=== PATIENT | male | born 1945 | race Caucasian/White ===

== ENCOUNTER 2020-08-25 01:38 | Inpatient (IN) ==
[2020-08-25] MEDS ORDERED: Perflutren Lipid Microsphere 1.3 ML in 0.9 % Sodium Chloride 8.7 ML IVP PRN (04:40)
[2020-08-25] MEDS ORDERED: Naloxone 0.4 MG/ML INJ IVP PRN (04:43)
[2020-08-25] MEDS ORDERED: Melatonin 3 MG TABLET PO PRN (04:43)
[2020-08-25] MEDS ORDERED: Acetaminophen 325 MG TABLET PO PRN (04:43)
[2020-08-25] MEDS ORDERED: Ondansetron 4 MG/2 ML VIAL IVP PRN (04:43)
[2020-08-25] MEDS ORDERED: *HR* Promethazine 25 MG/ML VIAL IM PRN (04:43)
[2020-08-25] MEDS ORDERED: *HR* Metoprolol 5 MG/5 ML VIAL IVP PRN (05:11)
[2020-08-25] MEDS: 0.9 % Sodium Chloride 1,000 ML IVC SCH ×2 (05:52→19:10)
[2020-08-25 06:01] LABS: Basophils # 0.1 K/mcL (0.0-0.2); Basophils % 0.6 %; Eosinophils # 0.1 K/mcL (0.0-0.6); Hematocrit 44.9 % (37.5-50.1); Hemoglobin 15.4 g/dL (12.9-16.9); Immature Granulocytes % 1.1 % (0-4); Lymphocytes # 0.9 K/mcL (0.6-4.6); Lymphocytes % 6.9 %; Mean Corpuscular HGB Conc 34.3 g/dL (31.6-35.5); Mean Corpuscular Hemoglobin 29.6 pg (28.0-33.3); Mean Corpuscular Volume 86.2 fL (83.0-100.0); Mean Platelet Volume 9.4 fL (9.4-12.4); Monocytes % 7.9 %; Neutrophils # 10.3 K/mcL (1.6-8.9); Platelet Count 252 K/mcL (140-400); Red Blood Count 5.21 M/mcL (4.19-5.50); Red Cell Distribution Width 13.4 % (11.5-14.5); Segmented Neutrophils % 82.5 %; White Blood Count 12.5 K/mcL (4.3-11.1)
[2020-08-25 06:08] LABS: Estimated Average Glucose 117 mg/dl; Hemoglobin A1C 5.7 %
[2020-08-25 06:17] LABS: Alanine Aminotransferase 33 Units/L (7-52); Albumin 3.7 g/dL (3.5-5.7); Albumin/Globulin Ratio 1.2 (1.1-2.2); Alkaline Phosphatase 86 Units/L (34-104); Aspartate Amino Transferase 66 Units/L (13-39); BUN/Creatinine Ratio 16 (6-26); Blood Urea Nitrogen 22 mg/dL (8-23); Calcium 8.8 mg/dL (8.6-10.3); Carbon Dioxide 21 mEq/L (23-29); Chloride 102 mEq/L (98-107); Globulin 3.2 g/dL (2.4-3.5); Glucose 77 mg/dL (70-105); Osmolality,Calculated 272 (280-300); Sodium 130 mEq/L (136-145); Total Protein 6.9 g/dL (6.4-8.9); eGFR For African Americans > 60 (> 60); eGFR For Non-African Americans 52 (> 60)
[2020-08-25 06:19] LABS: Chol/HDL Ratio 2.8 (0-4.9)
[2020-08-25 06:23] LABS: Sodium, Urine 26.3 mEq/L
[2020-08-25] MEDS ORDERED: *HR* Heparin 5,000 UNIT/ML VIAL IVP PRN (06:35)
[2020-08-25] MEDS ORDERED: *HR* Heparin 5,000 UNIT/ML VIAL IVP ONE (06:35)
[2020-08-25] MEDS: Heparin 25,000UNIT/250ML 1/2NS 25,000 UNIT/250 ML IV.SOLN IVC SCH (07:15)
[2020-08-25 07:22] LABS: Hematocrit 45.6 % (37.5-50.1); Hemoglobin 15.6 g/dL (12.9-16.9); Mean Corpuscular HGB Conc 34.2 g/dL (31.6-35.5); Mean Corpuscular Hemoglobin 29.4 pg (28.0-33.3); Mean Platelet Volume 9.3 fL (9.4-12.4); Platelet Count 243 K/mcL (140-400); Red Cell Distribution Width 13.5 % (11.5-14.5); White Blood Count 12.3 K/mcL (4.3-11.1)
[2020-08-25 07:31] LABS: Heparin anti-factor XA UFH 0.22 IU/mL (0.30-0.70); INR 1.3; Prothrombin Time 15.4 Seconds (9.4-12.1)
[2020-08-25] MEDS ORDERED: Aspirin Enteric Coated 81 MG Tablet PO SCH (09:00)
[2020-08-25] MEDS: Finasteride 5 MG TABLET PO SCH (13:40)
[2020-08-25] MEDS: *HR* Heparin 5,000 UNIT/ML VIAL IVP PRN (16:11)
[2020-08-26 03:20] LABS: Basophils # 0.1 K/mcL (0.0-0.2); Eosinophils # 0.2 K/mcL (0.0-0.6); Eosinophils % 1.8 %; Hematocrit 43.2 % (37.5-50.1); Hemoglobin 14.4 g/dL (12.9-16.9); Immature Granulocytes % 0.7 % (0-4); Lymphocytes # 1.1 K/mcL (0.6-4.6); Lymphocytes % 11.2 %; Mean Corpuscular HGB Conc 33.3 g/dL (31.6-35.5); Mean Corpuscular Volume 86.9 fL (83.0-100.0); Mean Platelet Volume 9.6 fL (9.4-12.4); Monocytes # 0.9 K/mcL (0.0-1.3); Neutrophils # 7.2 K/mcL (1.6-8.9); Platelet Count 244 K/mcL (140-400); Red Blood Count 4.97 M/mcL (4.19-5.50); Red Cell Distribution Width 13.3 % (11.5-14.5); Segmented Neutrophils % 76.3 %; White Blood Count 9.5 K/mcL (4.3-11.1)
[2020-08-26 03:22] LABS: INR 1.3; Prothrombin Time 14.5 Seconds (9.4-12.1)
[2020-08-26 03:23] LABS: Heparin anti-factor XA UFH 0.24 IU/mL (0.30-0.70)
[2020-08-26 03:37] LABS: Alanine Aminotransferase 28 Units/L (7-52); Albumin 3.4 g/dL (3.5-5.7); Albumin/Globulin Ratio 1.2 (1.1-2.2); Alkaline Phosphatase 79 Units/L (34-104); Aspartate Amino Transferase 37 Units/L (13-39); BUN/Creatinine Ratio 20 (6-26); Bilirubin,Total 0.7 mg/dL (0.3-1.0); Blood Urea Nitrogen 27 mg/dL (8-23); Calcium 8.6 mg/dL (8.6-10.3); Carbon Dioxide 21 mEq/L (23-29); Chloride 105 mEq/L (98-107); Globulin 2.8 g/dL (2.4-3.5); Glucose 190 mg/dL (70-105); Osmolality,Calculated 284 (280-300); Phosphorous 2.7 mg/dL (2.7-4.5); Potassium 4.5 mEq/L (3.5-5.1); Sodium 132 mEq/L (136-145); Total Protein 6.2 g/dL (6.4-8.9); eGFR For African Americans > 60 (> 60); eGFR For Non-African Americans 52 (> 60)
[2020-08-26] MEDS: *HR* Heparin 5,000 UNIT/ML VIAL IVP PRN (03:43)
[2020-08-26] MEDS: Finasteride 5 MG TABLET PO SCH (08:32)
[2020-08-26] MEDS ORDERED: NON-FORMULARY MEDICATION 1 EACH EACH (Insulin Glargine,Hum.Rec.Anlog [Lantus Solostar] 100 SQ SCH (09:00)
[2020-08-26] MEDS: Heparin 25,000UNIT/250ML 1/2NS 25,000 UNIT/250 ML IV.SOLN IVC SCH (10:00)
[2020-08-26 12:15] LABS: Troponin I 0.07 ng/mL (< 0.04)
[2020-08-26] MEDS: Apixaban 5 MG TABLET PO SCH ×2 (12:21→21:02)
[2020-08-26] MEDS ORDERED: QUEtiapine Fumarate 25 MG TABLET PO PRN (13:53)
[2020-08-26] MEDS: 0.9 % Sodium Chloride 1,000 ML IVC SCH ×2 (14:36→21:02)
[2020-08-26] MEDS: Aspirin 81 MG TAB.CHEW PO SCH (14:36)
[2020-08-27] MEDS: 0.9 % Sodium Chloride 1,000 ML IVC SCH ×2 (01:20→11:38)
[2020-08-27 02:13] LABS: BUN/Creatinine Ratio 19 (6-26); Blood Urea Nitrogen 22 mg/dL (8-23); Calcium 8.5 mg/dL (8.6-10.3); Carbon Dioxide 19 mEq/L (23-29); Chloride 104 mEq/L (98-107); Glucose 142 mg/dL (70-105); Magnesium 1.9 mg/dL (1.6-2.6); Osmolality,Calculated 280 (280-300); Phosphorous 2.6 mg/dL (2.7-4.5); Potassium 4.6 mEq/L (3.5-5.1); Sodium 132 mEq/L (136-145); Thyroid Stimulating Hormone 4.484 mcIU/mL (0.340-5.600); eGFR For African Americans > 60 (> 60); eGFR For Non-African Americans > 60 (> 60)
[2020-08-27] MEDS: Finasteride 5 MG TABLET PO SCH (09:11)
[2020-08-27] MEDS: Aspirin 81 MG TAB.CHEW PO SCH (09:11)
[2020-08-27] MEDS: Apixaban 5 MG TABLET PO SCH (09:11)
[2020-08-27] MEDS ORDERED: Isovue-370 500 ML BOTTLE IVP ONE (11:51)
[2020-08-27] MEDS: *HR* Rivaroxaban 15 MG TABLET PO SCH (19:58)
[2020-08-28] MEDS ORDERED: Regadenoson 0.4 MG/5 ML SYRINGE IVP ONE (07:23)
[2020-08-28] MEDS: Finasteride 5 MG TABLET PO SCH (10:53)
[2020-08-28] MEDS: *HR* Rivaroxaban 15 MG TABLET PO SCH (10:54)
[2020-08-28] MEDS: Aspirin 81 MG TAB.CHEW PO SCH (10:54)
[2020-08-28 12:13] VITALS: BP 143/83
== END 2020-08-28 16:52 | disposition home health service (06) | DRG 64 ==
LOC: 3BNU → SUATTDRO 04:03
PROVIDERS: ADMIT Family Medicine; ATTEND Registered Nurse